=== PATIENT | male | born 2000 | race Two or more races ===

== ENCOUNTER 2023-10-12 19:35 | Emergency (ER) | payer MEDICAID ==
[~2023-10-12] VITALS: Ht 172.7 cm; Wt 72.7 kg
[2023-10-12 19:45] VITALS: PULSE 145; RESP 18; O2SAT 94
[2023-10-12] MEDS: diphenhdrAMINE HCL 50 MG/1 ML VL IM ONE (20:34)
[2023-10-12] MEDS: LORazepam 2MG/ML-1ML VIAL IM ONE (20:34)
[2023-10-12 20:35] LABS: Acetaminophen < 2.0 UG/ML (10.0-20.0)
[2023-10-12] MEDS: LORazepam 2MG/ML-1ML VIAL ONE (20:36)
[2023-10-12] MEDS: diphenhdrAMINE HCL 50 MG/1 ML VL ONE (20:37)
[2023-10-12 20:51] LABS: Salicylate < 3.0 mg/dL (2.8-20.0)
[2023-10-12 22:43] LABS: Amphetamine Screen, Urine Pos (NEGATIVE); Barbiturate Scree,Urine Neg (NEGATIVE); Benzodiazephine Screen, Urine Neg (NEGATIVE); Cannabinoid Screen, Urine Pos (NEGATIVE); Cocaine Screen, Urine Neg (NEGATIVE); Opiate Scree,Urine Neg (NEGATIVE); Phencyclidine Screen, Urine Neg (NEGATIVE)
[2023-10-13] MEDS: OLANZapine 5 MG TAB PO SCH (05:00)
[2023-10-13] MEDS: SERTRALINE HCL 50 MG TAB PO SCH (05:00)
[2023-10-13 11:20] VITALS: BP 101/60; TEMP 98.2
[2023-10-13 11:28] VITALS: PULSE 88; RESP 15; O2SAT 98
== END 2023-10-13 19:52 | disposition home or self-care (01) ==
LOC: EDBD 19:35 → ER 19:35
DX: F23 Brief psychotic disorder (principal); F31.9 Bipolar disorder, unspecified
CPT/HCPCS: 36415; 80307; 80320; 80329; 93005; 96372; 99285; J1200; J2060

== ENCOUNTER 2023-11-15 18:45 | Emergency (ER) | payer MEDICAID ==
[~2023-11-15] VITALS: Ht 175.3 cm; Wt 65.9 kg
[2023-11-15 21:13] LABS: Amphetamine Screen, Urine Neg (NEGATIVE); Barbiturate Scree,Urine Neg (NEGATIVE); Benzodiazephine Screen, Urine Neg (NEGATIVE); Cocaine Screen, Urine Neg (NEGATIVE); Opiate Scree,Urine Neg (NEGATIVE)
[2023-11-15 21:14] LABS: Cannabinoid Screen, Urine Pos (NEGATIVE); Phencyclidine Screen, Urine Neg (NEGATIVE)
[2023-11-16 01:47] VITALS: PULSE 104; RESP 13; O2SAT 98
[2023-11-16 05:56] LABS: Basophils # (auto) 0 10 ^3/uL (0-0.2); Eosinophils # (auto) 0.1 10 ^3/uL (0-0.8); Hemoglobin 13.9 g/dL (13.5-17.5); Mean Corpuscular Hemoglobin 26.9 pg (28.0-32.0); Monocytes # (auto) 0.7 10 ^3/uL (0-1.3); Neutrophils # (auto) 4.2 10 ^3/uL (1.6-8.6); Nucleated Red Blood Cells % 0.1 %
[2023-11-16 05:58] LABS: Basophils % (auto) 0.3 % (0.0-2.0); Eosinophils % (auto) 1.5 % (0.0-7.0); Hematocrit 42.7 % (41.0-53.0); Lymphocytes # (auto) 2.3 10 ^3/uL (0.4-5.4); Lymphocytes % (auto) 31.2 % (10.0-50.0); Mean Corpuscular Hgb Conc. 32.5 g/dL (32.0-36.0); Monocytes % (auto) 9.8 % (0.0-12.0); Neutrophils % (auto) 57.2 % (37.0-80.0); Red Blood Cells 5.15 10^6/uL (4.5-5.90); Red Cell Distribution Width 14.6 % (11.8-14.3); White Blood Cell 7.3 10^3/uL (4.4-10.8)
[2023-11-16 06:27] LABS: Alanine Aminotransferase 17 U/L (7-40); Albumin 4.2 g/dL (3.2-4.8); Alkaline Phosphatase 81 U/L (46-116); Anion Gap 5 (5-15); Aspartate Aminotransferase 8 U/L (13-40); BUN/Creatinine Ratio 11.6 (10.0-20.0); Blood Urea Nitrogen 10 mg/dL (9-23); Calcium 9.5 mg/dL (8.7-10.4); Carbon Dioxide 26 mmol/L (20-30); Chloride 107 mmol/L (98-107); Glucose 94 mg/dL (74-106); Potassium 4.3 mmol/L (3.5-5.1); Sodium 138 mmol/L (136-145)
[2023-11-16 06:28] LABS: Bilirubin, Total 0.3 mg/dL (0.2-1.0)
[2023-11-16 08:25] VITALS: BP 124/94; TEMP 98.2
[2023-11-16 08:29] VITALS: PULSE 75; RESP 15; O2SAT 98
== END 2023-11-16 08:31 | disposition left against medical advice (07) ==
LOC: EDUNIT# 18:45 → EDBD 18:45 → ER 18:50
DX: F25.9 Schizoaffective disorder, unspecified (principal); F32.A Depression, unspecified
CPT/HCPCS: 36415; 80053; 80307; 85025

== ENCOUNTER 2024-06-24 | Emergency (ER) | payer MEDICAID ==
[~2024-06-24] VITALS: Ht 165.1 cm; Wt 68.0 kg
--- NOTE | 2024-06-24 00:15 | ED.PDOC ---
Psychiatric HPI Comments This patient is a homeless 23-year-old male who has a history of methamphetamine abuse who arrives to the ED today via EMS due to suicidal ideation. EMS states that the patient contact his them were statements the want to harm herself. Patient does not have a definitive plan, but states he has had relationship, career and housing concerns. Patient denies any fever nausea or vomiting. Patient states the last time used methamphetamine was four days ago. Vital signs were stable on arrival. Chief Complaint: Suicidal Time Seen by MD: 00:03 Reviewed Notes: Nurses Notes, Snowmaker Notes Information Source: Patient, Emergency Med Personnel Mode of Arrival: EMS Severity: Unable to Control Self Severity of Pain: None Severity of Mental Status: Severe Severity of Symptoms: Moderate Timing: Days Duration: Since onset Presents with: Depression, Suicidal Ideation History of: Substance Abuse Associated signs and symptoms: Hopeless, Amphetamines Past Medical History PAST MEDICAL HISTORY: Depression, Schizophrenia Surgical History: Denies all surgeries Family History Family History: Unknown Social History Smoker: Non-Smoker Alcohol: Denies ETOH Use Drugs: Methamphetamine Lives In: Unknown Constitutional: denies: chills, diaphoresis, fatigue, fever, malaise, sweats, weakness, others EENTM: denies: blurred vision, double vision, ear bleeding, ear discharge, ear drainage, ear pain, ear ringing, eye pain, eye redness, hearing loss, mouth pain, mouth swelling, nasal discharge, nose bleeding, nose congestion, nose pain, photophobia, tearing, throat pain, throat swelling, voice changes, others Respiratory: denies: cough, hemoptysis, orthopnea, SOB at rest, shortness of breath, SOB with excertion, stridor, wheezing, others Cardiovascular: denies: chest pain, dizzy spells, diaphoresis, Dyspnea on exertion, edema, irregular heart beat, left arm pain, lightheadedness, palpitations, PND, syncope, others Gastrointestinal: denies: abdomen distended, abdominal pain, blood streaked bowels, constipated, diarrhea, dysphagia, difficulty swallowing, hematemesis, melena, nausea, poor appetite, poor fluid intake, rectal bleeding, rectal pain, vomiting, others Genitourinary: denies: burning, dysuria, flank pain, frequency, hematuria, inco ntinence, penile discharge, penile sore, pain, testicle pain, testicle swelling, urgency, others Neurological: denies: dizziness, fainting, headache, left sided numbness, left sided weakness, numbness, paresthesia, pre-existing deficit, right sided numbness, right sided weakness, seizure, speech problems, tingling, tremors, weakness, others Musculoskeletal: denies: back pain, gout, joint pain, joint swelling, muscle pain, muscle stiffness, neck pain, others Integumetry: denies: bruises, change in color, change in hair/nails, dryness, laceration, lesions, lumps, rash, wounds, others Allergic/Immunocompromised: denies: Difficulty Healing, Frequent Infections, Hives, Itching, others Hematologic/Lymphatic: denies: anemia, blood clots, easy bleeding, easy bruising, swollen glands, others Endocrine: denies: excessive hunger, excessive sweating, excessive thirst, excessive urination, flushing, intolerance to cold, intolerance to heat, unexplained weight gain, unexplained weight loss, others Psychiatric: denies: anxiety, bipolar disorder, depression, hopeless, panic disorder, schizophrenia, sleepless, suicidal, others Unable to Obtain due to: Other (Suicidal ideation and depression) Physical Exam Exam Comments Patient is not well kempt and dirty. General Appearance: Moderate Distress (Patient appears to be under the influence. Patient has an unusual speech pattern.), Normal HEENT: Normal ENT Inspection, Pharynx Normal, TMs Normal Neck: Full Range of Motion, Non-Tender, Normal, Normal Inspection Respiratory: Chest Non-Tender, Lungs Clear, No Accessory Muscle Use, No Respiratory Distress, Normal Breath Sounds Cardiovascular: No Edema, No JVD, No Murmur, No Gallop, Normal Peripheral Pulses, Regular Rate/Rhythm Breast Exam: Deferred Gastrointestinal: No Organomegaly, Non Tender, No Pulsatile Mass, Normal Bowel Sounds, Soft Genitalia: Deferred Pelvic: Deferred Rectal: Deferred Extremities: No calf tenderness, Normal capillary refill, Normal inspection, Normal range of motion, Non-tender, No pedal edema Neurologic: Alert, 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 Was a procedure done?: No Psych Differential Dx Psych. Differential Dx: Anxiety, Bipolar Disorder, Depression, Schizoprenia, Suicidal Intoxication Differential Dx: Alcohol Withdraw Syndrome, Drug-Induced Psychosis X-Ray, Labs, Meds, VS Comment Studies were pending at time of this note. Once returned, patient will receive a psychiatric evaluation and assessment for placement will be made at that time. Time of 1ST Reevaluation: 00:13 Reevaluation 1ST: Unchanged Consultation: PCP, Psychiatry Patient Education/Counseling: Diagnosis, Treatment Family Education/Counseling: Diagnosis, Treatment Departure 1 Departure Time of Disposition: 00:14 Impression: Primary Impression: Depression with suicidal ideation Additional Impression: Methamphetamine abuse Disposition: 30 STILL A PATIENT Condition: Fair Discharged With: Self Critical Care Note Critical Care Time?: No Stability Stability form required: No Heart Score Heart Score: Heart Score Response (Comments) Value History N/A 0 EKG N/A 0 Age N/A 0 Risk Factors N/A 0 Troponin N/A 0 Total 0 CATALINA MEDINA PAC Jun 24, 2024 00:15
[2024-06-24 00:27] LABS: Urine Bacteria None Seen /hpf (None Seen)
[2024-06-24 01:02] LABS: Urine Blood Negative /uL (Negative); Urine Clarity Clear (Clear); Urine Color Yellow (Yellow); Urine Mucus FEW (None Seen); Urine Protein, UAD 1+ (Negative); Urine Specific Gravity 1.038 (1.001-1.035); Urine Squamous Epithelial Cell None Seen /hpf (<5); Urine Urobilinogen Normal (Negative); Urine WBC 1 /hpf (0 - 3)
[2024-06-24 01:31] LABS: Basophils # (auto) 0.1 10 ^3/uL (0-0.2); Basophils % (auto) 0.5 % (0.0-2.0); Eosinophils # (auto) 0 10 ^3/uL (0-0.8); Eosinophils % (auto) 0.3 % (0.0-7.0); Hematocrit 44.6 % (41.0-53.0); Hemoglobin 15.1 g/dL (13.5-17.5); Lymphocytes # (auto) 2.2 10 ^3/uL (0.4-5.4); Lymphocytes % (auto) 20.2 % (10.0-50.0); Mean Corpuscular Hemoglobin 27.8 pg (28.0-32.0); Mean Corpuscular Hgb Conc. 33.8 g/dL (32.0-36.0); Mean Corpuscular Volume 82.2 fL (80.0-100.0); Monocytes % (auto) 9.4 % (0.0-12.0); Neutrophils # (auto) 7.6 10 ^3/uL (1.6-8.6); Neutrophils % (auto) 69.6 % (37.0-80.0); Platelet Count (auto) 160 10^3/uL (140-450); Red Blood Cells 5.42 10^6/uL (4.5-5.90); Red Cell Distribution Width 13.8 % (11.8-14.3); White Blood Cell 10.9 10^3/uL (4.4-10.8)
[2024-06-24 01:37] LABS: Chloride 102 mmol/L (98-107); Sodium 136 mmol/L (136-145)
[2024-06-24 01:38] LABS: Anion Gap 10 (5-15); Calcium 10.1 mg/dL (8.7-10.4); Carbon Dioxide 24 mmol/L (20-31)
[2024-06-24 01:43] LABS: BUN/Creatinine Ratio 16.4 (10.0-20.0); Blood Urea Nitrogen 18 mg/dL (9-23)
[2024-06-24 01:44] LABS: Cannabinoid Screen, Urine Pos (NEGATIVE)
[2024-06-24 01:47] LABS: Blood Alcohol < 3.0 mg/dL (<10); Glucose 130 mg/dL (74-106); Potassium 3.5 mmol/L (3.5-5.1)
[2024-06-24 01:47] LABS: Amphetamine Screen, Urine Pos (NEGATIVE); Barbiturate Scree,Urine Neg (NEGATIVE); Benzodiazephine Screen, Urine Neg (NEGATIVE); Opiate Scree,Urine Neg (NEGATIVE); Phencyclidine Screen, Urine Neg (NEGATIVE)
[2024-06-24 01:48] LABS: Cocaine Screen, Urine Neg (NEGATIVE)
--- NOTE | 2024-06-24 03:36 | DVHINCON2 ---
Date of Service if different f: Jun 24, 2024 Time of Service: 03:29 Consult Consult Note PSYCHIATRY ED NEW CONSULT HPI: 23 yo M pt with meth use disorder and depression presents to ED BIBA for safety, psychiatric stabilization and possible med initiation/optimization in setting of homelessness, meth use, and passive SI. Psychiatry consulted for safety evaluation and recommendations in context of current presentation Per pt, reports ongoing struggles with meth addiction, chronic homelessness and limited support system, hence over past several weeks experiencing worsening depressed mood, hopelessness, helplessness, poor sleep/appetite, amotivation and unspecified anxiety symptoms. Also intermittent SI that are fleeting with no current plan/intent. Pt also appears to RTIS and possibly psychotic Pt currently does not have psychiatrist/therapist out in community. Currently not on any psychotropic agents. Prior psych med trials include olanzapine 7.5 mg qhs but w/ hx of med noncompliance. Admits to THC and meth use several days ago, does have long hx of THC/meth dependency Never , no children, unemployed, homeless for past several months, no legal issues, no/limited support system noted. Unknown trauma hx. Unknown FH. No acute medical issues, hx of seizures/TBI, or recent head injuries, NKDA Does have hx of suicide attempts x 2 resulting in several prior psych hospitalizations. Denies history of violence, unprovoked aggression, or assaultive behaviors. Does not have access to firearms. Currently endorses passive SI. Denies HI. No safety concerns noted during encounter. MSE: General Appearance/Behavior: Alert and awake; appears stated age, well developed, fair grooming and hygiene; calm and cooperative, fair eye contact, no PMA/PMR Speech: coherent, rrr, some latency in responses Thought Process: linear, logical, limited Thought Content: Abnormal Thoughts and Perceptions: + RTIS Homicidality / Violent Thoughts: None Suicidality: passive SI Hallucinations: + AH Delusions: mild paranoia Obsessions /compulsions : None Judgment and Insight: marginally fair to limited Mood & Affect: "okay" with mood-congruent, bit guarded, appropriate Orientation: oriented to person, place only Attention/Concentration: appears intact Memory: grossly intact Language: no unusual or inappropriate language Assessment: 23 yo M pt with meth use disorder and depression presents to ED BIBA for safety, psychiatric stabilization and possible med initiation/optimization in setting of homelessness, meth use, and passive SI. Pt is currently expressing some SI in setting of several recent acute life stressors (see hpi). Limited protective factors presently. Not on any psychotropics which maybe contributing to current symptoms. No outpt MH services at present. Pt agrees to talk with staff instead of acting on any suicidal feeli ngs while in ED. Pt medically cleared. Thus, acute risk is low and hence is appropriate for inpatient psychiatry admission. Pt will benefit from inpatient psychiatric admission for safety, psychiatric stabilization and possible medication initiation/optimization. Pt willing to transfer to inpt psych hospitalization voluntarily Primary Diagnosis: Psychotic disorder unspecified. Meth use disorder moderate. R/o SIMD/SIPD Recommend vol transfer to inpt psych facility for higher level of care per pts request Recommend restarting olanzapine 7.5 mg qhs - first dose now per pts request Risks/benefits/alternative treatments discussed, informed consent provided by pt If patient later refuses voluntary hospitalization/ requests to be discharged from ED prior to transfer, pt can be safely discharged with housing resources with psych reassessment or 5150 hold. Pt verbalized understanding and is receptive to above tx plan This case was discussed with ED nurse/provider and all parties in agreement with above tx plan Oscar Sawyer MD Plan discussed with: Patient OSCAR SAWYER MD Jun 24, 2024 03:36
[2024-06-24] MEDS: OLANZapine 5 MG TAB PO ONE (04:37)
[2024-06-24 07:32] VITALS: BP 99/33; TEMP 97.7
[2024-06-24 07:36] VITALS: PULSE 93; RESP 16; O2SAT 99
[2024-06-24] MEDS ORDERED: OLANZapine 5 MG TAB PO ONE (22:00)
[2024-06-25] MEDS ORDERED: OLANZapine 5 MG TAB PO SCH (22:00)
--- NOTE | 2024-06-26 02:19 | DVHINCON2 ---
Date of Service if different f: Jun 26, 2024 Time of Service: 02:18 Consult Plan discussed with: Patient CHERYL GIBSON MD Jun 26, 2024 02:19
== END 2024-06-24 13:39 | disposition left against medical advice (07) ==
LOC: ER → EDBD → ER 13:39
DX: F32.A Depression, unspecified (principal); R45.851 Suicidal ideations; F15.10 Other stimulant abuse, uncomplicated; F20.9 Schizophrenia, unspecified; Z59.00 Homelessness unspecified; Z79.899 Other long term (current) drug therapy
CPT/HCPCS: 36415; 80048; 80307; 80320; 81001; 85025

== ENCOUNTER 2024-06-25 16:24 | Emergency (ER) | payer MEDICAID ==
[~2024-06-25] VITALS: Ht 157.5 cm; Wt 69.2 kg
[2024-06-25 16:34] VITALS: BP 142/92; PULSE 100; RESP 20; O2SAT 98
--- NOTE | 2024-06-25 16:35 | ED.PDOC ---
Psychiatric HPI Comments 23 year old male presents to the ED with chief complaint of SI. Patient reports that he has been having thoughts of SI since yesterday along with associated auditory hallucinations where he is being told to commit suicide along with paranoia. Patient relays that he was seen yesterday for the same complaint, but he had eloped prior to talking to a psychiatrist. Patient notes he is homeless and admits to marijuana and methamphetamine use. Patient states he was on Zyprexa before, but has since run out. Patient denies any HI, VH, N/V/D, or plan. Time Seen by MD: 16:33 Reviewed Notes: Nurses Notes, Medications, Allergies Information Source: Patient Mode of Arrival: Ambulatory Severity: Able to Care for Self, Able to Control Self Severity of Pain: None Severity of Mental Status: Moderate Severity of Symptoms: Moderate Timing: Days Duration: Since onset Prehospital treatment: None Presents with: Depression, Suicidal Ideation Ingestion: None Circumstance: None Current substance abuse: Amphetamines Stressors: None History of: Depression, Schizophrenia, Substance Abuse Associated signs and symptoms: Depression, Hallucinations, Amphetamines Past Medical History PAST MEDICAL HISTORY: Depression, Schizophrenia Surgical History: Denies all surgeries Family History Family History: Unknown Social History Smoker: Cigarettes Alcohol: Denies ETOH Use Drugs: Marijuana, Methamphetamine Lives In: Homeless Constitutional: denies: chills, diaphoresis, fatigue, fever, malaise, sweats, weakness, others EENTM: denies: blurred vision, double vision, ear bleeding, ear discharge, ear drainage, ear pain, ear ringing, eye pain, eye redness, hearing loss, mouth pain, mouth swelling, nasal discharge, nose bleeding, nose congestion, nose pain, photophobia, tearing, throat pain, throat swelling, voice changes, others Respiratory: denies: cough, hemoptysis, orthopnea, SOB at rest, shortness of breath, SOB with excertion, stridor, wheezing, others Cardiovascular: denies: chest pain, dizzy spells, diaphoresis, Dyspnea on exertion, edema, irregular heart beat, left arm pain, lightheadedness, palpitations, PND, syncope, others Gastrointestinal: denies: abdomen distended, abdominal pain, blood streaked bowels, constipated, diarrhea, dysphagia, difficulty swallowing, hematemesis, melena, nausea, poor appetite, poor fluid intake, rectal bleeding, rectal pain, vomiting, others Genitourinary: denies: burning, dysuria, flank pain, frequency, hematuria, incontinence, penile discharge, penile sore, pain, testicle pain, testicle swelling, urgency, others Neurological: denies: dizziness, fainting, headache, left sided numbness, left sided weakness, numbness, paresthesia, pre-existing deficit, right sided numbness, right sided weakness, seizure, speech problems, tingling, tremors, wea kness, others Musculoskeletal: denies: back pain, gout, joint pain, joint swelling, muscle pain, muscle stiffness, neck pain, others Integumetry: denies: bruises, change in color, change in hair/nails, dryness, l aceration, lesions, lumps, rash, wounds, others Allergic/Immunocompromised: denies: Difficulty Healing, Frequent Infections, Hives, Itching, others Hematologic/Lymphatic: denies: anemia, blood clots, easy bleeding, easy bruising, swollen glands, others Endocrine: denies: excessive hunger, excessive sweating, excessive thirst, excessive urination, flushing, intolerance to cold, intolerance to heat, unexplained weight gain, unexplained weight loss, others Psychiatric: reports: depression, schizophrenia, suicidal; denies: anxiety, bipolar disorder, hopeless, panic disorder, sleepless, others All Other Systems: Reviewed and Negative Physical Exam General Appearance: Moderate Distress, Normal HEENT: Normal ENT Inspection, PERRL/EOMI Neck: Full Range of Motion, Non-Tender, Normal, Normal Inspection Respiratory: Chest Non-Tender, Lungs Clear, No Accessory Muscle Use, No Res piratory Distress, Normal Breath Sounds Cardiovascular: No Edema, No JVD, No Murmur, No Gallop, Normal Peripheral Pulses, Regular Rate/Rhythm Breast Exam: Deferred Gastrointestinal: No Organomegaly, Non Tender, No Pulsatile Mass, Normal Bowel Sounds, Soft Genitalia: Deferred Pelvic: Deferred Rectal: Deferred Extremities: No calf tenderness, Normal capillary refill, Normal inspection, Normal range of motion, Non-tender, No pedal edema Musculoskeletal : Apperance: Normal 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 Was a procedure done?: No Psych Differential Dx Psych. Differential Dx: Anxiety Suicidal Differential Dx: Depression, Schizoprenia, Substance Abuse X-Ray, Labs, Meds, VS Vital Signs Date Time Temp Pulse Resp B/P (MAP) Pulse Ox O2 Delivery O2 Flow Rate FiO2 06/25/24 16:34 97.8 100 20 142/92 (109) 98 Patient alert. States that he is hearing voices. Vitals stable. Answering questions. States that he is having suicidal ideation. 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 Reviewed his previous visit. He was here yesterday. Medically cleared. Time of 1ST Reevaluation: 17:07 Reevaluation 1ST: Unchanged Patient Education/Counseling: Prognosis Family Education/Counseling: No Family Present Additional Information I reviewed the following notes from patient's past medical encounters: 06/24/24 for SI The following tests were ordered, and results were reviewed by me: UDS Additional Information was gathered from interviewing the following independent historians: None I reviewed and agreed with the following test results read by other providers: None I discussed treatment and results with medical personnel. Departure 1 Departure Time of Disposition: 17:08 Impression: Primary Impression: Schizo-affective psychosis Qualified Codes: F25.9 - Schizoaffective disorder, unspecified Additional Impressions: Methamphetamine abuse Depression with suicidal ideation Disposition: 30 STILL A PATIENT Condition: Good Critical Care Note Critical Care Time?: No Stability Stability form required: No Heart Score Heart Score: Heart Score Response (Comments) Value History N/A 0 EKG N/A 0 Age N/A 0 Risk Factors N/A 0 Troponin N/A 0 Total 0 I personally scribed for JUANA SIU MD ([email or web address]) on 06/25/24 at 16:35. Electronically submitted by Demarco Church ([email or web address]). I personally scribed for JUANA SIU MD ([email or web address]) on 06/25/24 at 16:36. Electronically submitted by Demarco Church ([email or web address]). I personally scribed for JUANA SIU MD ([email or web address]) on 06/25/24 at 16:36. Electronically submitted by Demarco Church ([email or web address]). JUANA SIU MD Jun 25, 2024 16:35
== END 2024-06-25 19:41 | disposition left against medical advice (07) ==
LOC: ER 16:24
DX: R45.851 Suicidal ideations (principal); F15.10 Other stimulant abuse, uncomplicated; F32.A Depression, unspecified; F20.9 Schizophrenia, unspecified; F17.210 Nicotine dependence, cigarettes, uncomplicated; F12.90 Cannabis use, unspecified, uncomplicated; Z59.00 Homelessness unspecified

== ENCOUNTER 2024-06-25 21:31 | Emergency (ER) | payer MEDICAID ==
[~2024-06-25] VITALS: Ht 170.2 cm; Wt 54.5 kg
[2024-06-25 22:18] LABS: Basophils # (auto) 0 10 ^3/uL (0-0.2); Basophils % (auto) 0.4 % (0.0-2.0); Eosinophils # (auto) 0 10 ^3/uL (0-0.8); Eosinophils % (auto) 0.4 % (0.0-7.0); Hematocrit 44.3 % (41.0-53.0); Hemoglobin 14.7 g/dL (13.5-17.5); Mean Corpuscular Hemoglobin 27.3 pg (28.0-32.0); Mean Corpuscular Hgb Conc. 33.1 g/dL (32.0-36.0); Mean Corpuscular Volume 82.5 fL (80.0-100.0); Monocytes # (auto) 0.9 10 ^3/uL (0-1.3); Monocytes % (auto) 9.7 % (0.0-12.0); Neutrophils # (auto) 6.4 10 ^3/uL (1.6-8.6); Neutrophils % (auto) 68.5 % (37.0-80.0); Nucleated Red Blood Cells % 0.1 %; Platelet Count (auto) 152 10^3/uL (140-450); Red Blood Cells 5.37 10^6/uL (4.5-5.90); Red Cell Distribution Width 14.1 % (11.8-14.3); White Blood Cell 9.3 10^3/uL (4.4-10.8)
[2024-06-25 22:25] LABS: Urine Bacteria None Seen /hpf (None Seen)
[2024-06-25 22:32] LABS: Alanine Aminotransferase 29 U/L (7-40); Alkaline Phosphatase 103 U/L (46-116); Anion Gap 7 (5-15); Aspartate Aminotransferase 38 U/L (13-40); BUN/Creatinine Ratio 11.8 (10.0-20.0); Bilirubin, Total 0.7 mg/dL (0.2-1.0); Blood Alcohol 4.5 mg/dL (<10); Blood Urea Nitrogen 10 mg/dL (9-23); Calcium 10.2 mg/dL (8.7-10.4); Carbon Dioxide 29 mmol/L (20-31); Chloride 103 mmol/L (98-107); Sodium 139 mmol/L (136-145)
[2024-06-25 22:33] LABS: Urine Blood Negative /uL (Negative); Urine Clarity Clear (Clear); Urine Color Light-Yellow (Yellow); Urine Mucus FEW (None Seen); Urine Protein, UAD Negative (Negative); Urine Specific Gravity 1.015 (1.001-1.035); Urine Squamous Epithelial Cell None Seen /hpf (<5); Urine Urobilinogen Normal (Negative); Urine WBC <1 /hpf (0 - 3)
[2024-06-25 22:39] LABS: Glucose 53 mg/dL (74-106); Potassium 3.4 mmol/L (3.5-5.1)
[2024-06-25 22:49] LABS: Amphetamine Screen, Urine Pos (NEGATIVE); Barbiturate Scree,Urine Neg (NEGATIVE); Benzodiazephine Screen, Urine Neg (NEGATIVE); Cannabinoid Screen, Urine Neg (NEGATIVE); Cocaine Screen, Urine Neg (NEGATIVE); Opiate Scree,Urine Neg (NEGATIVE); Phencyclidine Screen, Urine Neg (NEGATIVE)
[2024-06-25] MEDS: OLANZapine 5 MG TAB PO ONE (23:14)
[2024-06-25] MEDS: LORazepam 0.5 MG TAB PO ONE (23:15)
--- NOTE | 2024-06-25 23:15 | ED.PDOC ---
History of Present Illness HPI Comments 23 y/o M, with a Hx of depression, schizophrenia, and polysubstance abuse, presents with c/o suicidal ideations and auditory hallucinations, today. Patient endorses on hearing "voices in [his] head" that instruct him to "kill himself" for awhile and expresses concerns for his life and safety. He comments on being evaluated at [facility] ED for symptoms within the past few days and leaving during most recent ED visit, earlier, today, due to him refusing to be admitted at a psychiatric facility then. Patient endorses no further relevant information, such as a concrete plan on how to end his life or recent substance use. He denies having any homicidal ideations, visual hallucinations, or other associated symptoms or modifiers at this time. Chief Complaint: Suicidal Time Seen by MD: 22:20 Primary Care Provider: none Reviewed Notes: Nurses Notes, Medications, Allergies Allergies: Coded Allergies: NO KNOWN ALLERGIES (Unverified , 10/12/23) Information Source: Patient Mode of Arrival: EMS Severity: Moderate Timing: Hours Duration: Since onset Prehospital treatment: None Review of Systems: REVIEW OF SYSTEMS: No fever, no chills, HEENT: No neck pain, no blurred vision Cardiac: No chest pain. No palpitations. Lungs: No shortness of breath, GI: No abdominal pain, no vomiting Musculoskeletal: No joint pain , no back pain Skin: No rash, no wound Neuro: No headache, no dizziness, no syncope Psych: suicidal ideations, auditory hallucinations Vital Signs Vital Signs Date Time Temp Pulse Resp B/P (MAP) Pulse Ox O2 Delivery O2 Flow Rate FiO2 06/26/24 05:38 18 Room Air* 0 21 06/25/24 23:15 97.6 84 145/106 (119) 99 97.6 Physical Exam General: Awake, alert and oriented. No acute distress. Anxious appearing. Skin: Skin in warm, dry and intact without rashes or lesions. HEENT: The head is normocephalic and atraumatic. Conjunctivae are clear without exudates or hemorrhage. Sclera is non-icteric. Neck: Normal range of motion. No JVD. Cardiac: Regular rate Respiratory: No signs of respiratory distress. No Stridor. Extremities: Upper and lower extremities are atraumatic in appearance without tenderness or deformity. Neurological: The patient is awake, alert and oriented to person, place, and time with normal speech. Speech is clear. There is no facial asymmetry. Psychiatric: Appropriate mood and affect. Good judgement and insight. No visual or auditory hallucinations. No suicidal or homicidal ideation. Past Medical History PAST MEDICAL HISTORY: Depression, Schizophrenia Surgical History: Denies all surgeries Family History Family History: Unknown Social History Smoker: Cigarettes Alcohol: Denies ETOH Use Drugs: Marijuana, Methamphetamine Lives In: Homeless Was a procedure done? Was a procedure done?: No Differential Dx Considerations may include: suicidal ideations, depression, hopelessness, anxiety, schizo-affection psychosis, schizophrenia, polysubstance abuse X-Ray, Labs, Meds, VS Vital Signs Date Time Temp Pulse Resp B/P (MAP) Pulse Ox O2 Delivery O2 Flow Rate FiO2 06/26/24 05:38 18 Room Air* 0 21 06/25/24 23:15 97.6 84 16 145/106 (119) 99 97.6 06/25/24 21:45 97.8 103 20 152/105 (121) 100 Lab Test 06/25/24 22:11 06/25/24 22:00 Range/Units Urine Color Light-yellow Yellow Urine Clarity Clear Clear Urine pH 7.0 5.0-9.0 Urine Specific [place] 1.015 1.001-1.035 Urine Protein Negative Negative Urine Ketones Trace Negative Urine Blood Negative Negative /uL Urine Nitrite Negative Negative Urine Bilirubin Negative Negative Urine Urobilinogen Normal Negative mg/dL Urine Leukocyte Esterase Negative Negative /uL Urine RBC <1 0 - 3 /hpf Urine WBC <1 0 - 3 /hpf Urine Squamous Epithelial Cells None seen <5 /hpf Urine Bacteria None seen None Seen /hpf Urine Mucus Few None Seen Urine Glucose Normal Normal mg/dL Urine Opiates Screen Neg NEGATIVE Urine Fentanyl Screen Neg NEGATIVE Urine Barbiturates Screen Neg NEGATIVE Urine Phencyclidine Screen Neg NEGATIVE Urine Amphetamines Screen Pos NEGATIVE Urine Benzodiazepines Screen Neg NEGATIVE Urine Cocaine Screen Neg NEGATIVE Urine Cannabinoids Screen Neg NEGATIVE White Blood Count 9.3 4.4-10.8 10^3/uL Red Blood Count 5.37 4.5-5.90 10^6/uL Hemoglobin 14.7 13.5-17.5 g/dL Hematocrit 44.3 41.0-53.0 % Mean Corpuscular Volume 82.5 80.0-100.0 fL Mean Corpuscular Hemoglobin 27.3 L 28.0-32.0 pg Mean Corpuscular Hemoglobin Concent 33.1 32.0-36.0 g/dL Red Cell Distribution Width 14.1 11.8-14.3 % Platelet Count 152 140-450 10^3/uL Mean Platelet Volume 9.9 6.9-10.8 fL Neutrophils (%) (Auto) 68.5 37.0-80.0 % Lymphocytes (%) (Auto) 21.0 10.0-50.0 % Monocytes (%) (Auto) 9.7 0.0-12.0 % Eosinophils (%) (Auto) 0.4 0.0-7.0 % Basophils (%) (Auto) 0.4 0.0-2.0 % Neutrophils # (Auto) 6.4 1.6-8.6 10 ^3/uL Lymphocytes # (Auto) 2.0 0.4-5.4 10 ^3/uL Monocytes # (Auto) 0.9 0-1.3 10 ^3/uL Eosinophils # (Auto) 0 0-0.8 10 ^3/uL Basophils # (Auto) 0 0-0.2 10 ^3/uL Nucleated Red Blood Cells 0.1 % Sodium Level 139 136-145 mmol/L Potassium Level 3.4 L 3.5-5.1 mmol/L Chloride Level 103 98-107 mmol/L Carbon Dioxide Level 29 20-31 mmol/L Anion Gap 7 5-15 Blood Urea Nitrogen 10 9-23 mg/dL Creatinine 0.85 0.700-1.30 mg/dL Glomerular Filtration Rate Calc 127 >90 mL/min BUN/Creatinine Ratio 11.8 10.0-20.0 Serum Glucose 53 L 74-106 mg/dL Calcium Level 10.2 8.7-10.4 mg/dL Total Bilirubin 0.7 0.2-1.0 mg/dL Aspartate Amino Transferase (AST) 38 13-40 U/L Alanine Aminotransferase (ALT) 29 7-40 U/L Alkaline Phosphatase 103 46-116 U/L Total Protein 8.0 5.7-8.2 g/dL Albumin 5.0 H 3.2-4.8 g/dL Plasma/Serum Blood Alcohol 4.5 <10 mg/dL Current Medications Medications (Trade) Dose Ordered Sig/Kenneth Route Start Time Stop Time Status Last Admin Olanzapine (ZyPREXA Tablet) 7.5 mg ONCE ONCE PO 06/25/24 22:30 06/25/24 22:31 DC 06/25/24 23:14 Lorazepam (Ativan Tablet) 2 mg ONCE ONCE PO 06/25/24 22:30 06/25/24 22:31 DC 06/25/24 23:15 Time of 1ST Reevaluation: 22:50 Reevaluation 1ST: Unchanged Patient Education/Counseling: Diagnosis, Treatment Family Education/Counseling: No Family Present Departure 1 Departure Time of Disposition: 05:49 Impression: Primary Impression: Suicidal ideation Disposition: 30 STILL A PATIENT Condition: Stable Comments [age] year old male who presents to the emergency department with suicidal ideation. He is medically cleared for psychiatric evaluation. Dr. Sawyer evaluated the patient and recommendation is "Pt will benefit from in patient psychiatric admission for safety, psychiatric stabilization and possible medication initiation/optimization. " Patient has not been administered dose of 7.5 mg of olanzapine. Pending placement. Patient specifically states he has not want to be placed at [facility]" Signed out to Dr. Morrison pending placement. Critical Care Note Critical Care Time?: No Stability Stability form required: No Heart Score Heart Score: Heart Score Response (Comments) Value History N/A 0 EKG N/A 0 Age N/A 0 Risk Factors N/A 0 Troponin N/A 0 Total 0 I personally scribed for BEBETO RAYA MD ([email or web address]) on 06/25/24 at 23:15. Electronically submitted by Cameron Iniguez ([email or web address]). BEBETO RAYA MD Jun 25, 2024 23:15
--- NOTE | 2024-06-26 02:21 | DVHINCON2 ---
Date of Service if different f: Jun 26, 2024 Time of Service: 02:20 Consult Consult Note PSYCHIATRY ED NEW CONSULT HPI: 23 yo M pt with meth use disorder and depression presents to ED BIBA for safety, psychiatric stabilization and possible med initiation/optimization in setting of homelessness, meth use, AH, and passive SI. Psychiatry consulted for safety evaluation and recommendations in context of current presentation. Of note, pt with recent multiple ED visits for similar cc/presentation including recent ED admission on 06/24 at which time pt eloped prior to inpt psych admission Per pt, reports ongoing struggles with meth addiction, chronic homelessness and limited support system, hence over past several weeks experiencing worsening depressed mood, helplessness, poor sleep/appetite, amotivation and unspecified anxiety symptoms. Also intermittent SI that are fleeting with no current plan/intent. Pt also appears to RTIS and possibly psychotic, earlier c/o CAH to hurt self Pt currently does not have psychiatrist/therapist out in community. Currently not on any psychotropic agents. Prior psych med trials include olanzapine 7.5 mg qhs but w/ hx of med noncompliance. Admits to THC and meth use [employer], does have long hx of THC/meth dependency Never , no children, unemployed, homeless for past several months, no legal issues, no/limited support system noted. Unknown trauma hx. Unknown FH. No acute medical issues, hx of seizures/TBI, or recent head injuries, NKDA Does have hx of suicide attempts x 2 resulting in several prior psych hosp italizations. Denies history of violence, unprovoked aggression, or assaultive behaviors. Does not have access to firearms. Currently endorses passive SI. Denies HI. No safety concerns noted during encounter. MSE: General Appearance/Behavior: Alert and partially awake; appears stated age, well developed, marginally fair grooming and hygiene; calm and cooperative, intermittent eye contact, no PMA/PMR Speech: coherent, rrr, some latency in responses Thought Process: linear, logical, limited/slightly impoverished Thought Content: Abnormal Thoughts and Perceptions: + RTIS Homicidality / Violent Thoughts: None Suicidality: passive SI Hallucinations: + AH Delusions: mild paranoia Obsessions /compulsions : None Judgment and Insight: marginally fair to limited Mood & Affect: "okay" with mood-congruent, bit guarded, appropriate Orientation: oriented to person, place only Attention/Concentration: appears intact Memory: grossly intact Language: no unusual or inappropriate language Assessment: 23 yo M pt with meth use disorder and depression presents to ED BIBA for safety, psychiatric stabilization and possible med initiation/optimization in setting of homelessness, meth use, AH, and passive SI. Psychiatry consulted for safety evaluation and recommendations in context of current presentation. Of note, pt with recent multiple ED visits for similar cc/presentation including recent ED admission on 06/24 at which time pt eloped prior to inpt psych admission. Pt medically cleared Pt is currently expressing some SI with no plan/intent. Question veracity of SI as pt struggles primarily with meth use. Limited protective factors presently. Not on any psychotropics which maybe contributing to current symptoms. No outpt MH services at present. Pt agrees to talk with staff instead of acting on any suicidal feelings while in ED. Thus, acute risk is low and hence is appropriate for inpatient psychiatry admission. Pt will benefit from inpatient psychiatric admission for safety, psychiatric stabilization and possible medication initiation/optimization. Pt willing to transfer to inpt psych hospitalization voluntarily Primary Diagnosis: Psychotic disorder unspecified. Meth use disorder moderate. R/o SIMD/SIPD Recommend vol transfer to inpt psych facility for higher level of care per pts request Recommend restarting olanzapine 7.5 mg qhs - first dose now per pts request Risks/benefits/alternative treatments discussed, informed consent provided by pt If patient later refuses voluntary hospitalization/ requests to be discharged from ED prior to transfer, pt can be safely discharged with housing resources WITHOUT psych reassessment or [id number] hold. Pt verbalized understanding and is receptive to above tx plan This case was discussed with ED nurse/provider and all parties in agreement with above tx plan Oscar Sawyer MD Plan discussed with: Patient OSCAR SAWYER MD Jun 26, 2024 02:21
[2024-06-26 05:38] VITALS: RESP 18
[2024-06-26 20:00] VITALS: BP 119/78; PULSE 101; RESP 20; TEMP 98.3; O2SAT 97
== END 2024-06-27 09:43 | disposition left against medical advice (07) ==
LOC: ER 21:31 → EDBD 21:31 → ER 06-27 09:43
DX: R45.851 Suicidal ideations (principal); F32.A Depression, unspecified; F20.9 Schizophrenia, unspecified; F17.210 Nicotine dependence, cigarettes, uncomplicated; F15.90 Other stimulant use, unspecified, uncomplicated; Z59.00 Homelessness unspecified
CPT/HCPCS: 36415; 80053; 80307; 80320; 81001; 85025